=== PATIENT | male | born 1990 | race African-American/Black ===

== ENCOUNTER 2019-12-07 14:59 | Emergency (ER) | payer MEDICAID ==
[~2019-12-07] VITALS: Ht 182.9 cm; Wt 73.0 kg
[2019-12-07] MEDS ORDERED: ACETAMINOPHEN 325MG TABLET PO ONE (17:45)
[2019-12-07] MEDS ORDERED: IBUPROFEN 600MG TABLET PO ONE (17:45)
[2019-12-07 17:50] VITALS: BP 118/76
[2019-12-07 17:57] LABS: CLARITY URINE CLEAR (CLEAR); COLOR URINE YELLOW (YELLOW); KETONES URINE 1+ (NEGATIVE); LEUKOCYTE ESTERASE URINE NEGATIVE (NEGATIVE); NITRITE URINE NEGATIVE (NEGATIVE); OCCULT BLOOD URINE NEGATIVE (NEGATIVE); PROTEIN URINE NEGATIVE (NEGATIVE); SPECIFIC GRAVITY URINE 1.028 (1.005-1.030)
[2019-12-07 18:20] LABS: HEMATOCRIT. 39.7 % (42.0-52.0); HEMOGLOBIN. 13.8 g/dL (14.0-18.0); MEAN CORPUSCULAR HEMOGLOBIN 31.1 pg (28.0-32.0); MEAN CORPUSCULAR VOLUME 89.2 fL (80.0-94.0); MEAN PLATELET VOLUME 7.7 fl (7.4-10.4); PLATELET 205 x1000/uL (130-400); RED BLOOD CELL COUNT 4.45 mill/uL (4.7-6.1)
[2019-12-07 18:30] LABS: CHLORIDE 104 mEq/L (98-107)
[2019-12-07 18:41] LABS: PLATELET ESTIMATE NORMAL
== END 2019-12-07 19:32 | disposition home or self-care (01) ==
LOC: ER 14:59
DX: J10.1 Influenza due to other identified influenza virus with other respiratory manifestations (principal); Z87.828 Personal history of other (healed) physical injury and trauma
CPT/HCPCS: 36415; 71045; 80053; 81003; 85025; 87804; 99284